=== PATIENT | female | born 1985 | race Hispanic/Latino ===

== ENCOUNTER 2018-08-18 17:15 | Emergency (ER) | payer OTHER ==
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
[2018-08-18] MEDS ORDERED: TYLENOL PO ONE (19:14)
[2018-08-18 19:16] LABS: Basophils % (Auto) 0.2 % (0.0-1.8); Eosinophils # (Auto) 0.1 K/mm3 (0.0-0.4); Eosinophils % (Auto) 0.4 % (0.0-4.3); Hematocrit 42.6 % (30.3-42.9); Hemoglobin 14.3 gm/dl (10.1-14.3); Lymphocytes # (Auto) 2.4 K/mm3 (1.2-5.4); Lymphocytes % (Auto) 14.9 % (13.4-35.0); Mean Corpuscular HGB Conc 34 % (30-34); Mean Corpuscular Volume 95 fl (79-97); Monocytes # (Auto) 1.2 K/mm3 (0.0-0.8); Monocytes % (Auto) 7.3 % (0.0-7.3); Platelet Count 268 K/mm3 (140-440); Red Blood Count 4.46 M/mm3 (3.65-5.03); Red Cell Distribution Width 14.5 % (13.2-15.2)
[2018-08-18 19:36] LABS: Benzodiazepines Screen,Urine PRESUMPTIVE NEGATIVE; Cannabinoid Screen,Urine PRESUMPTIVE NEGATIVE; Cocaine Screen,Urine PRESUMPTIVE NEGATIVE; Methadone Screen,Urine PRESUMPTIVE NEGATIVE; Opiate Screen,Urine PRESUMPTIVE NEGATIVE
[2018-08-18 19:37] LABS: Bacteria,Urine 1+ /HPF (Negative); Bilirubin,Urine NEG (Negative); Blood,Urine NEG (Negative); Color,Urine Yellow (Yellow); Mucus,Urine 2+ /HPF; Protein,Urine <15 mg/dL mg/dL (Negative); Urobilinogen,Urine < 2.0 mg/dL (<2.0)
[2018-08-18 19:38] LABS: Alanine Aminotransferase 13 units/L (7-56); Albumin 4.6 g/dL (3.9-5); BUN/Creatinine Ratio 24; Blood Urea Nitrogen 17 mg/dL (7-17); Calcium 9.4 mg/dL (8.4-10.2); Hemolysis Index 11
[2018-08-18 20:00] LABS: Amphetamine Screen,Urine PRESUMPTIVE POSITIVE
[2018-08-18] MEDS ORDERED: IBUPROFEN PO ONE (20:35)
[2018-08-18] MEDS ORDERED: AUGMENTIN 875 MG PO ONE (21:23)
[2018-08-18] MEDS ORDERED: BOOSTRIX IM ONE (21:23)
[2018-08-18] MEDS ORDERED: XANAX PO ONE (22:21)
[2018-08-19] MEDS ORDERED: NORCO 5/325 PO ONE (13:30)
[2018-08-19] MEDS ORDERED: VISTARIL ONE (13:40)
[2018-08-19] MEDS ORDERED: VISTARIL PO PRN (13:47)
[2018-08-19] MEDS ORDERED: VISTARIL PO ONE (14:00)
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
[2018-08-19] MEDS: NEURONTIN PO SCH (20:25)
[2018-08-20] MEDS ORDERED: TYLENOL ONE (08:55)
[2018-08-20] MEDS: NEURONTIN PO SCH ×3 (09:03→20:40)
[2018-08-20] MEDS ORDERED: TYLENOL PO ONE (09:08)
[2018-08-20] MEDS ORDERED: ATIVAN ONE (10:10)
[2018-08-20] MEDS ORDERED: ATIVAN PO ONE (10:31)
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
[2018-08-21] MEDS: NEURONTIN PO SCH (08:00)
[2018-08-21 10:50] VITALS: BP 125/90
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
[2018-08-21] MEDS ORDERED: NEURONTIN PO SCH ×2 (22:00)
== END 2018-08-21 14:53 | disposition home or self-care (01) ==
LOC: EEVIPCON 17:15 → ED 17:15
DX: S01.112A Laceration without foreign body of left eyelid and periocular area, initial encounter (principal); S50.319A Abrasion of unspecified elbow, initial encounter; S01.111A Laceration without foreign body of right eyelid and periocular area, initial encounter; G43.909 Migraine, unspecified, not intractable, without status migrainosus; F17.200 Nicotine dependence, unspecified, uncomplicated; F12.10 Cannabis abuse, uncomplicated; Z79.899 Other long term (current) drug therapy; Y04.2XXA Assault by strike against or bumped into by another person, initial encounter; Y93.89 Activity, other specified; Y92.019 Unspecified place in single-family (private) house as the place of occurrence of the external cause; Y99.8 Other external cause status
CPT/HCPCS: 36415; 70450; 80053; 80307; 81001; 84702; 85025; 87086; 90471; Q0177